=== PATIENT | male | born 1965 | race Caucasian/White ===

== ENCOUNTER 2016-11-24 12:37 | Emergency (ER) | payer BC, OTHER ==
[2016-11-24 13:35] VITALS: BP 177/102; PULSE 90; RESP 18; TEMP 98.1
--- NOTE | 2016-11-24 14:18 | ED ---
Upper Extremity HPI - General Chief Complaint: Extremity Injury, Upper Stated Complaint: Hand Pain Time Seen by Provider: 11/24/16 14:07 Source: patient, RN notes reviewed Mode of arrival: ambulatory Limitations: no limitations - History of Present Illness Initial Comments: Patient is a 50-year-old male presenting to the with chief complaint of right hand pain after falling on outstretched hand on the ice. Patient reports that he has decreased range of motion and pain with supination and pronation of his hand and wrist. He denies any elbow pain or upper arm pain. He also denies any shoulder pain. He states that he does have significant swelling over the lateral aspect of the hand. She reports that he is right-handed. Patient denies any peripheral paresthesias.Patient denies any recent fever, chills, shortness of breath, chest pain, back pain, abdominal pain, nausea vomiting, numbness or tingling, dysuria or hematuria, constipation or diarrhea, headaches or visual changes, or any other current symptoms - Related Data Previous Rx's Medication Instructions Recorded HYDROcodone/APAP 10-325MG [[place] 1 tab PO Q6H PRN #20 tab 11/24/16 10-325] Allergies Allergy/AdvReac Type Severity Reaction Status Date / Time No Known Allergies Allergy Verified 11/24/16 13:35 Review of Systems ROS Statement: Those systems with pertinent positive or pertinent negative responses have been documented in the HPI. ROS Other: All systems not noted in ROS Statement are negative. Past Medical History Past Medical History: No Reported History, Hypertension History of Any Multi-Drug Resistant Organisms: None Reported Additional Past Surgical History / Comment(s): nasal polyps Past Psychological History: No Psychological Hx Reported Smoking Status: Current every day smoker Past Alcohol Use History: Daily Past Drug Use History: None Reported General Exam - General Exam Comments Initial Comments: is a pleasant 50-year-old male. He does not appear to be in significant distress. Limitations: no limitations General appearance: alert, in no apparent distress Head exam: Present: atraumatic, normocephalic, normal inspection Eye exam: Present: normal appearance, PERRL, EOMI. Absent: scleral icterus, conjunctival injection, periorbital swelling ENT exam: Present: normal exam, mucous membranes moist Neck exam: Present: normal inspection. Absent: tenderness, meningismus, lymphadenopathy Respiratory exam: Present: normal lung sounds bilaterally. Absent: respiratory distress, wheezes, rales, rhonchi, stridor Cardiovascular Exam: Present: regular rate, normal rhythm, normal heart sounds. Absent: systolic murmur, diastolic murmur, rubs, gallop, clicks GI/Abdominal exam: Present: soft, normal bowel sounds. Absent: distended, tenderness, guarding, rebound, rigid Extremities exam: Present: normal capillary refill. Absent: normal inspection, full ROM, tenderness, pedal edema, joint swelling, calf tenderness Right Elbow exam: Present: normal inspection, full ROM, pain w/ pronation/supination ( over lateral aspect of hand) Forearm Wrist exam: Absent: normal inspection, full ROM (patient has limited flexion, extension, lateral movements due to pain and swelling. ) Hand Wrist exam: Present: swelling (significant swelling over metacarpals 3-5). Absent: normal inspection, full ROM Neuro motor exam: Present: other (patient unable to preform finger movements due to pain and welling ). Absent: wrist extension intact, thumb opposition intact, thumb IP flexion intact, thumb adduction intact, fingers 2-5 abduction intact Neurosensory exam: Present: 2-point discrimination, radial nerve intact, ulnar nerve intact, median nerve intact Vascular: Present: normal capillary refill Back exam: Present: normal inspection Neurological exam: Present: alert, oriented X3, CN II-XII intact Psychiatric exam: Present: normal affect, normal mood Skin exam: Present: warm, dry, intact, normal color. Absent: rash Course Vital Signs 11/24/16 13:32 Temperature 98.1 F Pulse Rate 90 Respiratory 18 Rate Blood Pressure 177/102 O2 Sat by Pulse 99 Oximetry Procedures - Orthopedic Splinting/Casting Injury #1 Side: right Upper Extremity Injury Location: wrist Upper Extremity Immobilizer: volar splint Additional Comments: Was reevaluated after splint was applied and is neurovascularly intact. Medical Decision Making - Medical Decision Making Patient is 50-year-old male presenting to the with chief complaint of right wrist and hand pain after falling on his hand with after slipping on ice. Patient has a distal impacted radial fracture. No evidence of fractures with hand. There is significant soft tissue swelling of the hand which is dependent. I discussed this case with Jermaine Lopez the PA working for the on-call orthopedic physician he stated that it is appropriate to splint the patient and given pain management until he can follow-up with orthopedic physician tomorrow. Patient was placed in a volar splint. Patient was given 1 IM Dilaudid for pain management. He also be discharged with [place]. Patient was also placed in a sling for is holding his wrist. Patient will be given a referral for Dr. 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 Patient understands treatment plan will comply. Return parameters were discussed. - Radiology Data Radiology results: report reviewed Review of the wrist shows a distal impacted radial fracture. No evidence of any metacarpal fractures or hand fractures. Disposition Clinical Impression: Fracture of radius, distal, closed Disposition: HOME SELF-CARE Condition: Good Instructions: Wrist Fracture in Adults (ED) Additional Instructions: Patient instructed to remain in splint until seen by orthopedic. Call the orthopedic physician as soon as possible and states that there is a comminuted distal radius fracture. Return to the [facility] if any alarming signs or symptoms occur. Prescriptions: HYDROcodone/APAP 10-325MG [[place] 10-325] 1 tab PO Q6H PRN #20 tab PRN Reason: Pain Referrals: Elvis Vasquez MD [STAFF PHYSICIAN] - 1-2 days Time of Disposition: 15:05
--- NOTE | 2016-11-24 14:32 | XR ---
EXAMINATION TYPE: XR wrist complete RT DATE OF EXAM: 11/24/2016 2:26 PM COMPARISON: NONE HISTORY: Pain, fall TECHNIQUE: 4 views right wrist FINDINGS: There is a comminuted fracture distal metaphyseal radius. No additional fractures are evide nt. This appears somewhat impacted. Soft tissue swelling is present. IMPRESSION: 1. Impacted comminuted metaphyseal radial fracture.
--- NOTE | 2016-11-24 14:34 | XR ---
EXAMINATION TYPE: XR hand complete RT DATE OF EXAM: 11/24/2016 2:26 PM COMPARISON: NONE HISTORY: Pain, fall TECHNIQUE: 3 views right hand FINDINGS: Comminuted fracture of the distal metaphyseal radius is again evident. Please see wrist dic tation the same date. The hand appears intact. Acute fracture within the hand is not identified. There is soft tissue swell ing over the dorsum of the hand. IMPRESSION: 1. Comminuted fracture distal metaphyseal radius. 2. Soft tissue swelling dorsum of hand.
[2016-11-24] MEDS ORDERED: HYDROmorphone 1 MG/ML 1 ML SYRINGE IM STA (14:37)
== END 2016-11-24 15:32 | disposition home or self-care (01) ==
LOC: EC 12:37
DX: S52.591A Other fractures of lower end of right radius, initial encounter for closed fracture (principal); W00.0XXA Fall on same level due to ice and snow, initial encounter; F17.200 Nicotine dependence, unspecified, uncomplicated
CPT/HCPCS: 73110; 73130; 99283; 29125; 96372; J1170